=== PATIENT | male | born 1995 | race Caucasian/White ===

== ENCOUNTER 2017-12-24 01:44 | Emergency (ER) | payer SELFPAY ==
[~2017-12-24] VITALS: Ht 180.3 cm; Wt 79.4 kg
--- NOTE | 2017-12-24 01:49 | Emergency Room Report ---
History of Present Illness General Source: EMS Present Illness HPI This is a 22-year-old male with unknown medical history. He was brought in with chief complaint of alcohol intoxication and vomiting. He was picked up in front of his apartment complex. His neighbors recognized that he stay in that apartment complex. He has strong smell of alcoholic beverage on his breath. Was vomiting. Unable to walk up to his apartment. No trauma. No other injury. Unable to get anything for this patient because of his severe intoxication. Allergies: Coded Allergies: UNABLE TO ASSESS (Unverified , 12/24/17) Patient History Past Medical History: see triage record, old chart reviewed Past Surgical History: unable to obtain Pertinent Family History: unable to obtain Social History: Reports: alcohol use Immunizations: other Reviewed Nursing Documentation: PMH: Agreed; PSxH: Agreed Review of Systems All Other Systems: limited - secondary to intoxication Physical Exam Sp02 EP Interpretation: reviewed, normal General Appearance: well appearing, no apparent distress, other - strong smell of alcoholic beverage on breath, Stupor Head: normocephalic, atraumatic Eyes: bilateral eye PERRL, bilateral eye EOMI ENT: hearing grossly normal, normal pharynx Neck: full range of motion, supple, no meningismus Respiratory: chest non-tender, lungs clear, normal breath sounds Cardiovascular #1: regular rate, rhythm, no murmur Gastrointestinal: normal bowel sounds, non tender, no mass, no organomegaly, no bruit, non-distended Musculoskeletal: back normal, normal range of motion Neurologic: grossly normal Skin: warm/dry Medical Decision Making Diagnostic Impression: Primary Impression: Acute alcoholic intoxication Qualified Codes: F10.929 - Alcohol use, unspecified with intoxication, unspecified ER Course Patient with altered mental status secondary severe alcohol intoxication. He slowly improving. We'll observe until clinical sobriety. There is no trauma. No indication for x-rays or CT scan. We'll discharge home once clinically sober. Status: improved Disposition: HOME, SELF-CARE Condition: Stable Patient Instructions: Alcohol Intoxication, [id number] Additional Instructions: Stop using alcohol to extreme. Follow-up with your DrStephanie 7 days. Return if worse. ROSELYN HODGES M.D. Dec 24, 2017 01:49
[2017-12-24 03:09] VITALS: BP 103/61
[2017-12-24 05:12] VITALS: BP 101/65
[2017-12-24 06:47] VITALS: BP 105/73
[2017-12-24 07:30] VITALS: BP 105/73
== END 2017-12-24 07:30 | disposition home or self-care (01) ==
LOC: EDBD 01:44 → EMR 01:54
DX: F10.929 Alcohol use, unspecified with intoxication, unspecified (principal)
CPT/HCPCS: 36415; 96361; 96374; 99284; G0480; J2405; 80329